=== PATIENT | female | born 1950 | race Caucasian/White ===

== ENCOUNTER 2017-03-19 08:58 | Emergency (ER) | payer OTHER ==
[2017-03-19 09:20] VITALS: BP 164/100
--- NOTE | 2017-03-19 10:22 | UC ---
Lower Extremity/Ankle HPI - HPI Summary HPI Summary: Patient presents with an unremarkable past medical history. She presents with complaints of right great toe pain, non-traumatic. She states she has had needle in her foot since she was a young girl and it was never removed because it did not cause any problems, and reports that it moves around. She reports that she now has developed pain in the great toe and mild redness and swelling. She denies fever, chills, fatigue, malaise, numbness, tingling associated with her concerns. - History of Current Complaint Chief Complaint: UCLowerExtremity Stated Complaint: SWOLLEN R TOE Time Seen by Provider: 03/19/17 10:00 Hx Obtained From: Patient ?: No Onset/Duration: Lasting Days Severity Initially: Mild Severity Currently: Mild Aggravating Factor(s): Standing, Ambulation Alleviating Factor(s): Rest Able to Bear Weight: Yes - Risk Factors Gout Risk Factors: Negative DVT Risk Factors: Negative Septic Arthritis Risk Factor: Negative - Allergies/Home Medications Allergies/Adverse Reactions: Allergies Allergy/AdvReac Type Severity Reaction Status Date / Time Penicillins Allergy Intermediate Swelling Verified 03/19/17 09:09 Procaine [From Novocain] Allergy Intermediate Swelling Verified 03/19/17 09:09 PMH/Surg Hx/FS Hx/Imm Hx Previously Healthy: Yes - Surgical History Surgical History: Yes Surgery Procedure, Year, and Place: HYSTERECTOMY 1997,LEFT HIP REPLACEMENT 2008 - Family History Known Family History: Positive: Other - lung cancer - Social History Alcohol Use: Rare Substance Use Type: None Smoking Status (MU): Former Smoker Review of Systems Constitutional: Negative Skin: Negative Eyes: Negative ENT: Negative Respiratory: Negative Cardiovascular: Negative Gastrointestinal: Negative Genitourinary: Negative Motor: Negative Neurovascular: Negative Musculoskeletal: Edema, Myalgia Neurological: Negative Psychological: Negative All Other Systems Reviewed And Are Negative: Yes Physical Exam Triage Information Reviewed: Yes Appearance: Well-Appearing Vital Signs: Initial Vital Signs Temp 98 F 03/19/17 09:10 Pulse 71 03/19/17 09:10 Resp 17 03/19/17 09:10 BP 164/100 03/19/17 09:10 Pulse Ox 100 03/19/17 09:10 Vital Signs Reviewed: Yes Eye Exam: Normal ENT Exam: Normal Dental Exam: Normal Neck exam: Normal Neck: Positive: 1 Respiratory Exam: Normal Cardiovascular Exam: Normal Abdominal Exam: Normal Musculoskeletal Exam: Normal Musculoskeletal: Positive: ROM Limited @, Edema @, Other: - ght great toe, no tenderness of the metatarsal joint, for first metatarsal bone. rom-intact. neruo -intact. no palpable neuroma. Neurological Exam: Normal Psychological Exam: Normal Skin Exam: Normal Lower Extremity Course/Dx - Course Course Of Treatment: Patient presents with nontraumatic right great toe pain. She remains neuro-vasc intact. Xrays of the foot were obtained and read by the radiologist as and were reviewed with the patient as foreign body present. She was referred on to [facility] and they will see her now, she was given a copy of the radilogy disc and sent directly to their office. She was in stable condition and able to drive self to the appointment. - Differential Dx/Diagnosis Differential Diagnosis/HQI/PQRI: Other - chronic foreign body Provider Diagnoses: chronic foreign body right foot Discharge - Discharge Plan Condition: Stable Disposition: HOME Prescriptions: Cephalexin CAP* [Keflex CAP*] 500 mg PO QID #40 cap Patient Education Materials: Soft Tissue Foreign Body (ED), Cellulitis (ED) Referrals: Demario Galdamez MD [Primary Care Provider] - Additional Instructions: We made an appointment for you at [facility] they will see you now, go directly to there office.
--- NOTE | 2017-03-19 10:39 | RAD ---
INDICATION: Foreign body right foot. TECHNIQUE: 3 views of the right foot were obtained. FINDINGS: The bones are in normal alignment. No fracture is seen. There is a linear density which projects along the plantar aspect of the foot between the bases of the first and second proximal phalanges. This is smooth and metallic in density along its anterior aspect and slightly less dense and more irregular along its posterior aspect. IMPRESSION: LINEAR METALLIC FOREIGN BODY ALONG THE PLANTAR ASPECT OF THE FOOT DESCRIBED.
== END 2017-03-19 10:48 | disposition home or self-care (01) ==
LOC: UCEAST 08:58
DX: M79.5 Residual foreign body in soft tissue (principal); Z87.891 Personal history of nicotine dependence
CPT/HCPCS: 99212; G0463